=== PATIENT | male | born 1990 | race Caucasian/White ===

== ENCOUNTER 2020-08-29 09:03 | Day surgery (SDC) | payer BC ==
[2020-08-29] MEDS ORDERED: Lactated Ringers 1,000 ML IV SCH (09:15)
--- NOTE | 2020-08-29 09:44 | PCM.PREANE ---
Preanesthetic Assessment - Procedure Proposed Procedure: Incision and Drainage of Umbilical Abscess - Anesthesia/Transfusion/Family Hx Anesthesia History: Prior Anesthesia Without Reaction Family History of Anesthesia Reaction: No Transfusion History: No Prior Transfusion(s) Intubation History: Unknown - Review of Systems General: No Symptoms, Fatigue Pulmonary: No Symptoms (occasional ETOH) Cardiovascular: No Symptoms Gastrointestinal: No Symptoms, Decreased Appetite Neurological: No Symptoms Other: Reports: None - Physical Assessment NPO Status Date: 08/29/20 NPO Status Time: 00:05 Vital Signs: Last Vital Signs Temp 36.5 C 08/29/20 09:18 Pulse 89 08/29/20 09:18 Resp 16 08/29/20 09:18 BP 136/76 08/29/20 09:18 Pulse Ox 100 08/29/20 09:18 Height: 1.83 m Weight: 102.058 kg ASA Class: 1E Mental Status: Alert & Oriented x3 Airway Class: Mallampati = 2 Dentition: Reports: Normal Dentition, Caries Thyro-Mental Finger Breadths: 3 Mouth Opening Finger Breadths: 3 ROM/Head Extension: Full Lungs: Clear to Auscultation, Normal Respiratory Effort Cardiovascular: Regular Rate, Regular Rhythm, No Murmurs - Anesthesia Plan Pre-Op Medication Ordered: None - Acknowledgements Anesthesia Type Planned: General Anesthesia, MAC Pt an Appropriate Candidate for the Planned Anesthesia: Yes Alternatives and Risks of Anesthesia Discussed w Pt/Guardian: Yes Pt/Guardian Understands and Agrees with Anesthesia Plan: Yes PreAnesthesia Questionnaire - Past Health History Medical/Surgical History: Denies Medical/Surgical History - SUBSTANCE USE Tobacco Use Status *Q: Never Tobacco User Recreational Drug Use History: No - CURRENT (IN HOUSE) MEDS Current Meds: Current Medications Lactated Ringer's (Ringers, Lactated) 1,000 mls @ 75 mls/hr IV ASDIRECTED [facility] Last Admin: 08/29/20 09:39 Dose: 75 mls/hr Documented by:
[2020-08-29] MEDS ORDERED: Bupivacaine 0.5%/EPINEPHrine 1:200,000 50 ML MDV ONE (09:45)
--- NOTE | 2020-08-29 09:46 | PCM.HP.2 ---
H&P History of Present Illness - General Date of Service: 08/29/20 Admit Problem/Dx: Admission Diagnosis/Problem Admission Diagnosis/Problem umbilical abscess Source of Information: Patient History Limitations: Reports: No Limitations - History of Present Illness Initial Comments - Free Text/Narative: Mr. Tanner is a healthy 29 yo man who presents with an umbilical abscess. He was doing well until last Sunday when he first noticed some pain at the site. Within the week, the site has become more painful, red and indurated, now with dark red drainage. He was seen in the [place] [facility] last night, and an abdominal CT scan was obtained showing 3.5 x 3.1 fluid collection in soft tissue at umbilicus. His WBC was 13. He has never had a problem like this before and denies prior drainage from the umbilicus. He has no medical problems, takes no medications. He had a laparoscopic appendectomy 10-15 years ago. He has no drug allergies and does not smoke. He has no significant family history. Past Medical History - Past Health History Medical/Surgical History: Denies Medical/Surgical History Social & Family History - Tobacco Use Tobacco Use Status *Q: Never Tobacco User - Recreational Drug Use Recreational Drug Use: No H&P Review of Systems - Review of Systems: Review Of Systems: See Below General: Reports: No Symptoms HEENT: Reports: No Symptoms Pulmonary: Reports: No Symptoms Cardiovascular: Reports: No Symptoms Gastrointestinal: Reports: Abdominal Pain Genitourinary: Reports: No Symptoms Musculoskeletal: Reports: No Symptoms Skin: Reports: No Symptoms Psychiatric: Reports: No Symptoms Neurological: Reports: No Symptoms Hematologic/Lymphatic: Reports: No Symptoms Immunologic: Reports: No Symptoms Exam - Exam Exam: See Below - Vital Signs Vital Signs: Last Vital Signs Temp 36.5 C 08/29/20 09:18 Pulse 89 08/29/20 09:18 Resp 16 08/29/20 09:18 BP 136/76 08/29/20 09:18 Pulse Ox 100 08/29/20 09:18 - Exam General: Alert, Oriented, Cooperative HEENT: Conjunctiva Clear Neck: Supple Lungs: Clear to Auscultation, Normal Respiratory Effort Cardiovascular: Regular Rate, Regular Rhythm GI/Abdominal Exam: Soft, Other (cellulitis and erythema around umbilicus, tender and indurated, with scant bloody drainage. ) Extremities: Normal Inspection Skin: Warm, Dry Neuro Extensive - Mental Status: Alert, Oriented x3 Psychiatric: Normal Mood Sepsis Event Note - Evaluation Sepsis Screening Result: No Definite Risk - Focused Exam Vital Signs: Vital Signs Temp Pulse Resp BP Pulse Ox 08/29/20 09:18 36.5 C 89 16 136/76 100 Problem List Initiated/Reviewed/Updated: Yes Orders Last 24hrs: Active Orders 24 hr Category Date Time Status Patient Status [ADT] Routine ADT 08/29/20 09:25 Active CORONAVIRUS COVID-19 TERRA [MOLEC] Stat Lab 08/29/20 09:15 Received Lactated Ringers [Ringers, Lactated] 1,000 ml Med 08/29/20 09:15 Active IV ASDIRECTED Schedule Procedure [COMM] Stat Oth 08/29/20 09:25 Ordered Medication Orders Lactated Ringer's (Ringers, Lactated) 1,000 mls @ 75 mls/hr IV ASDIRECTED [facility] Last Admin: 08/29/20 09:39 Dose: 75 mls/hr Documented by: JACQUI Assessment/Plan Comment:: Umbilical abscess Plan for incision drainage/ wound exploration - Mortality Measure Prognosis:: Good
[2020-08-29] MEDS ORDERED: HYDROmorphone 0.5 MG/0.5 ML Syringe ONE ×2 (09:53→09:56)
[2020-08-29] MEDS ORDERED: Ondansetron 4 MG/2 ML SDV ONE (09:53)
[2020-08-29] MEDS ORDERED: Lidocaine 1% 4 ML ONE (09:53)
[2020-08-29] MEDS ORDERED: Midazolam 1 MG/ML 2 ML SDV ONE (09:54)
[2020-08-29] MEDS ORDERED: Propofol 200 MG/20 ML SDV ONE ×2 (09:54→10:51)
[2020-08-29] MEDS ORDERED: fentaNYL 100 MCG/2 ML SDV ONE (09:54)
[2020-08-29] MEDS ORDERED: Ketamine 500 mg/10 ML MDV ONE (09:55)
[2020-08-29] MEDS ORDERED: HYDROmorphone 0.5 MG/0.5 ML Syringe IVPUSH PRN (10:37)
[2020-08-29] MEDS ORDERED: diphenhydrAMINE 50 MG/ML SDV IVPUSH PRN (10:37)
[2020-08-29] MEDS ORDERED: Ondansetron 4 MG/2 ML SDV IVPUSH PRN (10:37)
[2020-08-29] MEDS ORDERED: fentaNYL 100 MCG/2 ML SDV IVPUSH PRN (10:37)
[2020-08-29] MEDS ORDERED: Lactated Ringers 1,000 ML ONE (10:44)
--- NOTE | 2020-08-29 11:18 | PCM48HPAN ---
Post Anesthesia Note - EVALUATION WITHIN 48HRS OF ANESTHETIC Vital Signs in Normal Range: Yes Patient Participated in Evaluation: Yes Respiratory Function Stable: Yes Airway Patent: Yes Cardiovascular Function Stable: Yes Hydration Status Stable: Yes Pain Control Satisfactory: Yes Nausea and Vomiting Control Satisfactory: Yes Mental Status Recovered: Yes Vital Signs: Last Vital Signs Temp 99.4 08/29/20 1110 Pulse 87 08/29/20 1110 Resp 14 08/29/20 1110 BP 115/69 08/29/20 1110 Pulse Ox 94% 08/29/20 1110
--- NOTE | 2020-08-29 11:28 | PCM.PRNOTE ---
- Free Text/Narrative Note: Date: 08/29/2020 Operation: drainage of umbilical abscess, excision of umbilical tissue Surgeon: Edwar Nelson MD Findings: approximately 20 cc of pus drained- cultures obtained. There was no umbilical hernia. The umbilicus and overlying skin were excised and sent for pathologic analysis. Detailed Report: The patient was taken to the operating room and placed in supine position. Timeout was performed and monitored anesthesia care was initiated. Abdominal hair was clipped. The abdomen was prepped and draped in usual sterile fashion. 10 cc of 0.5% Marcaine with epinephrine was injected intradermally all around the umbilicus. A 4 cm periumbilical incision was made with a 15 blade scalpel. Dissection was carried down to subcutaneous tissue. Pus was encountered superior to the umbilicus. Cultures for microbiology were obtained. The umbilical stalk was dissected circumferentially. All pus was suctioned. Devitalized tissue was debrided sharply with monopolar energy. The umbilical stalk was divided. Fascia felt intact with no evidence of umbilical hernia. The umbilical tissue and overlying skin, which appeared abnormal were excised and sent for pathologic analysis. The wound measured approximately 4 x 4 x 3 cm. The edges of the wound cavity were debrided back to healthy bleeding tissu e. Hemostasis was achieved with electrocautery. The opening of the wound was cinched down with a 0 Vicryl pursestring suture, reducing it sized to a diameter of approximately 2 cm. The wound was packed with iodine soaked Kerlix and dressed with dry gauze and tape. The patient tolerated the procedure well.
== END 2020-08-29 12:20 | disposition home or self-care (01) ==
LOC: JD.ED 09:03 → JD.SDS 09:42
PROVIDERS: ATTEND Surgery
DX: L02.216 Cutaneous abscess of umbilicus (principal); Z01.812 Encounter for preprocedural laboratory examination; Z20.822 Contact with and (suspected) exposure to COVID-19
CPT/HCPCS: 10060; 11406; 87070; 87075; 87205; 87635; J2250; J2704; J3490; J7120; 00400; 99140; J1170; J2405; J3010; U0002